=== PATIENT | male | born 1940 | race Caucasian/White ===

== ENCOUNTER 2017-07-04 01:19 | Emergency (ER) | payer MEDICARE, MEDICAID ==
[~2017-07-04] VITALS: Ht 175.3 cm; Wt 75.9 kg
[2017-07-04 01:21] VITALS: BP 176/96
[2017-07-04 02:31] LABS: HEMATOCRIT 42.9 % (39.2-51.8); HEMOGLOBIN 14.5 g/dL (13.7-18.0); WHITE BLOOD COUNT 7.1 x10^3/uL (3.4-10)
[2017-07-04 02:42] LABS: ASPARTATE AMINO TRANSFERASE 28 U/L (15-37); BLOOD UREA NITROGEN 16 mg/dL (7-18)
== END 2017-07-04 03:14 | disposition home or self-care (01) ==
LOC: ED 03:08
DX: R41.0 Disorientation, unspecified (principal); R41.82 Altered mental status, unspecified; H53.2 Diplopia; F17.200 Nicotine dependence, unspecified, uncomplicated
CPT/HCPCS: 36415; 70450; 80053; 85025; 93005; 99285

== ENCOUNTER 2017-09-15 17:20 | Observation (INO) | payer MEDICARE, MEDICAID ==
[~2017-09-15] VITALS: Ht 175.3 cm; Wt 74.4 kg
[2017-09-15] MEDS ORDERED: LISI-167 PO (17:52)
[2017-09-15] MEDS ORDERED: SODIUM CHLORIDE FLUSH 10ML SYR IVF ONE (18:00)
[2017-09-15 18:15] LABS: HEMATOCRIT 46.9 % (39.2-51.8); HEMOGLOBIN 15.7 g/dL (13.7-18.0); WHITE BLOOD COUNT 8.7 x10^3/uL (3.4-10)
[2017-09-15 18:22] LABS: ASPARTATE AMINO TRANSFERASE 22 U/L (15-37); BLOOD UREA NITROGEN 14 mg/dL (7-18)
[2017-09-15 18:27] LABS: IS PT STATUS REG ER OR PRE ER? YES
[2017-09-15] MEDS ORDERED: HEPARIN 25,000 UNITS/500ML PMX 500 ML IV PRN ×2 (19:00→19:30)
[2017-09-15] MEDS ORDERED: HEPARIN 5,000 UNITS/ML, 1ML IV ONE (19:00)
[2017-09-15] MEDS ORDERED: HEPARIN 5,000 UNITS/ML, 1ML IV PRN (19:00)
[2017-09-15] MEDS ORDERED: ENOXAPARIN 80 MG/0.8 ML SQ ONE (19:00)
[2017-09-15] MEDS ORDERED: HEPARIN 5,000 UNITS/ML, 1ML ONE (19:04)
[2017-09-15] MEDS ORDERED: HEPARIN 25,000 UNITS/500ML PMX 500 ML ONE (19:05)
[2017-09-15] MEDS ORDERED: morphine SULFATE 10 MG/ML, 1ML IVPush PRN (19:30)
[2017-09-15] MEDS ORDERED: ENALAPRILAT 1.25 MG/ML, 2ML IVPush PRN (19:30)
[2017-09-15] MEDS ORDERED: LABETALOL 5MG/ML, 20ML IVPush PRN (19:30)
[2017-09-15 20:17] VITALS: BP 179/93
[2017-09-15 21:02] VITALS: BP 156/88
[2017-09-15] MEDS ORDERED: NICOTINE 21 MG/24 HR PATCH.TD24 TD ONE (22:00)
[2017-09-16 01:02] LABS: IS PT STATUS REG ER OR PRE ER? NO
[2017-09-16 01:15] VITALS: BP 126/79
[2017-09-16 02:06] LABS: DAU SCREEN DISCLAIMER
[2017-09-16 06:46] LABS: HEMATOCRIT 44.6 % (39.2-51.8); HEMOGLOBIN 15.1 g/dL (13.7-18.0); WHITE BLOOD COUNT 6.2 x10^3/uL (3.4-10)
[2017-09-16 06:58] LABS: BLOOD UREA NITROGEN 10 mg/dL (7-18)
[2017-09-16] MEDS ORDERED: ASPIRIN 81 MG TABLET EC PO SCH (08:00)
[2017-09-16] MEDS ORDERED: REGADENOSON 0.4 MG/5 ML SYRINGE ONE (08:05)
[2017-09-16 08:30] VITALS: BP 159/84
[2017-09-16 08:48] LABS: IS PT STATUS REG ER OR PRE ER? NO
[2017-09-16] MEDS ORDERED: LISINOPRIL 10 MG TABLET PO SCH (09:00)
[2017-09-16] MEDS ORDERED: ENOXAPARIN 40 MG/0.4 ML SQ SCH (10:00)
[2017-09-16 14:02] VITALS: BP 130/82
[2017-09-16] MEDS ORDERED: METO25TA91 PO (14:25)
[2017-09-16] MEDS ORDERED: ATOR20TA9 PO (14:25)
[2017-09-16] MEDS ORDERED: ASPI-515 PO (14:25)
[2017-09-16] MEDS ORDERED: LISI-167 PO (14:26)
== END 2017-09-16 15:21 | disposition home or self-care (01) ==
LOC: ED 18:02 → INTOOBSV 18:39 → EDIP 18:39 → 5SO 20:01
PROVIDERS: ADMIT Internal Medicine; ATTEND Internal Medicine
DX: I21.4 Non-ST elevation (NSTEMI) myocardial infarction (principal); I16.0 Hypertensive urgency; J44.9 Chronic obstructive pulmonary disease, unspecified; I11.0 Hypertensive heart disease with heart failure; I50.32 Chronic diastolic (congestive) heart failure; E44.1 Mild protein-calorie malnutrition; F15.10 Other stimulant abuse, uncomplicated; F17.200 Nicotine dependence, unspecified, uncomplicated; Z91.19 Patient's noncompliance with other medical treatment and regimen
CPT/HCPCS: 36415; 71010; 78452; 80048; 80053; 80061; 80307; 83036; 83735; 84484; 85025; 85520; 85610; 93017; 93306; 96365; 96366; 96372; 96375; 96376; 99285; A9502; C9898; G0378; J1644; J1650; J2785; G0479

== ENCOUNTER 2017-09-22 04:59 | Emergency (ER) | payer MEDICARE, MEDICAID ==
[~2017-09-22] VITALS: Ht 175.3 cm; Wt 79.0 kg
[~2017-09-22 04:59] MED LIST: ASPI-515 PO; ATOR20TA9 PO; LISI-167 PO; METO25TA91 PO
[2017-09-22 06:20] LABS: HEMATOCRIT 45.5 % (39.2-51.8); HEMOGLOBIN 15.4 g/dL (13.7-18.0); WHITE BLOOD COUNT 9.5 x10^3/uL (3.4-10)
[2017-09-22 06:21] LABS: BLOOD UREA NITROGEN 11 mg/dL (7-18)
[2017-09-22 06:25] LABS: IS PT STATUS REG ER OR PRE ER? YES
[2017-09-22 07:36] VITALS: BP 153/85
== END 2017-09-22 07:38 | disposition home or self-care (01) ==
LOC: ED 05:36
DX: I10 Essential (primary) hypertension (principal); F11.10 Opioid abuse, uncomplicated; I25.2 Old myocardial infarction
CPT/HCPCS: 36415; 71010; 80048; 82040; 83880; 84484; 85025; 93005

== ENCOUNTER 2019-02-15 12:56 | Inpatient (IN) | payer MEDICARE, MEDICAID ==
[~2019-02-15] VITALS: Ht 177.8 cm; Wt 72.9 kg
[~2019-02-15 12:56] MED LIST changes: +ACET325T14 PO; +AMOX1TAB12 PO; +ATOR20TA37 PO; -ATOR20TA9 PO; +RIVA15TA PO; +RIVA20TA PO
[2019-02-15 13:57] LABS: ALBUMIN 3.3 g/dL (3.4-5.0); ANION GAP 4 mmol/L (5-15); CALCIUM 8.6 mg/dL (8.5-10.1); CHLORIDE 113 mmol/L (98-107); CREATININE 0.82 mg/dL (0.7-1.3)
[2019-02-15 14:02] LABS: BASOPHILS # (AUTO) 0.02 x10^3/uL (0-0.1); BASOPHILS % (AUTO) 0 % (0-1); EOSINOPHILS # (AUTO) 0.21 x10^3/uL (0-0.4); EOSINOPHILS % (AUTO) 3 % (1-7); LYMPHOCYTES # (AUTO) 1.75 x10^3/uL (1-3.4); LYMPHOCYTES % (AUTO) 21 % (22-44); MD NO; MEAN CORPUSCULAR HEMOGLOBIN 31.1 pg (27.5-34.5); MEAN CORPUSCULAR HGB CONC 32.6 g/dL (33.2-36.2); MEAN CORPUSCULAR VOLUME 95.4 fL (81-97); MONOCYTES # (AUTO) 0.83 x10^3/uL (0.2-0.8); MONOCYTES % (AUTO) 10 % (2-9); NEUTROPHILS # (AUTO) 5.34 x10^3/uL (1.8-6.8); NEUTROPHILS % (AUTO) 66 % (42-75); PLATELET COUNT 244 x10^3/uL (130-400); RED BLOOD COUNT 4.73 x10^6/uL (4.38-5.82); RED CELL DISTRIBUTION WIDTH 13.3 % (9.4-14.8)
--- NOTE | 2019-02-15 14:25 | NUR ---
FORM SETTER: PT TO ROOM FROM LOBBY
--- NOTE | 2019-02-15 14:25 | NUR ---
PT AMBULATORY TO ROOM FROM LOBBY. NAD.
[2019-02-15] MEDS ORDERED: LIDOCAINE-MPF 1%, 5ML ONE (14:59)
[2019-02-15] MEDS ORDERED: ONDANSETRON 2MG/ML, 2ML ONE (14:59)
[2019-02-15] MEDS ORDERED: ONDANSETRON 2MG/ML, 2ML IVPush ONE (15:00)
[2019-02-15] MEDS ORDERED: VANCOMYCIN PER PHARMACY IV ONE (15:00)
[2019-02-15] MEDS ORDERED: MORPHINE SULFATE 4 MG/ML, 1ML ONE (15:00)
[2019-02-15] MEDS ORDERED: SODIUM CHLORIDE FLUSH 10ML SYR IVF ONE (15:00)
[2019-02-15] MEDS ORDERED: MORPHINE SULFATE 4 MG/ML, 1ML IVPush PRN (15:00)
--- NOTE | 2019-02-15 15:08 | NUR ---
Chirag RN note: Pt medicated for pain per DEC. MD resident at bedside to perform I&D. Pt resting in bed, talking with SO, NADN, denies other needs. Continuous oxygen and BP Monitors applied, all safety measures observed.
--- NOTE | 2019-02-15 15:16 | NUR ---
BEDSIDE REPORT TO JESENIA MERCER. AWAITING SECOND DRAW TO INITIATE VANCO.
[2019-02-15] MEDS ORDERED: VANCOMYCIN 1,500 MG in SODIUM CHLORIDE 0.9% 250 ML IV ONE (15:30)
--- NOTE | 2019-02-15 15:48 | NUR ---
ATTEMTP TO GIVE REPORT TO MEDICAL X 1, RN UNABLE TO TAKE REPORT
[2019-02-15 16:08] LABS: ALANINE AMINOTRANSFERASE 45 U/L (12-78); ALBUMIN 3.5 g/dL (3.4-5.0); ANION GAP 4 mmol/L (5-15); CALCIUM 8.7 mg/dL (8.5-10.1); CHLORIDE 115 mmol/L (98-107); CREATININE 0.78 mg/dL (0.7-1.3)
[2019-02-15 16:10] LABS: ALKALINE PHOSPHATASE 110 U/L (45-117); BILIRUBIN,TOTAL 0.5 mg/dL (0.2-1.0); TOTAL PROTEIN 6.8 g/dL (6.4-8.2)
[2019-02-15] MEDS: SODIUM CHLORIDE 0.9% 1,000 ML IV SCH (16:12)
--- NOTE | 2019-02-15 16:26 | NUR ---
VANCO STARTED AFTER BLOOD CULTURES, LINE DRAWN AROUND REDNESS ON R LEG, REPORT GIVEN, HOSPITALIST SAW PT.
[2019-02-15] MEDS ORDERED: VANCOMYCIN PER PHARMACY MC PRN (16:30)
[2019-02-15] MEDS ORDERED: DOCUSATE 100 MG CAPSULE PO PRN (16:30)
[2019-02-15] MEDS ORDERED: HEPARIN 5,000 UNITS/ML, 1ML SQ SCH (16:30)
[2019-02-15] MEDS ORDERED: morphine SULFATE 10 MG/ML, 1ML IVPush PRN (16:30)
[2019-02-15] MEDS ORDERED: LABETALOL 5 MG/ML SYRINGE IVPush PRN (16:30)
[2019-02-15] MEDS ORDERED: POLYETHYLENE GLYCOL 17 GM PACKET PO PRN (16:30)
[2019-02-15] MEDS ORDERED: BISACODYL 10 MG SUPP PR PRN (16:30)
[2019-02-15] MEDS ORDERED: GABAPENTIN 300 MG CAPSULE PO PRN (16:30)
[2019-02-15 16:36] LABS: INTERNATIONAL NORMALIZED RATIO 0.97 (0.93-1.1); PROTHROMBIN TIME 10.2 Seconds (9.6-11.5)
[2019-02-15 17:00] LABS: HEMOGLOBIN A1C 5.9 % (4.2-6.3)
[2019-02-15] MEDS ORDERED: PHARMACOKINETIC MONITORING MC PRN (17:00)
[2019-02-15] MEDS ORDERED: PHARMACOKINETIC CONSULTATION MC ONE (17:00)
[2019-02-15 17:10] VITALS: BP 170/94
[2019-02-15 17:10] LABS: HCT (SEDRATE) 45.1 % (39.2-51.8)
[2019-02-15] MEDS: NICOTINE 14MG/24 HR PATCH.TD24 TD SCH (18:27)
[2019-02-15] MEDS: PIPERACILLIN/TAZO/PMX 3.375GM 50 ML IV SCH ×2 (18:27→23:16)
[2019-02-15] MEDS: RIVAROXABAN 15 MG TABLET PO SCH (18:34)
[2019-02-15 18:47] VITALS: BP 170/94
[2019-02-15 21:35] VITALS: BP 121/64
[2019-02-15 22:09] LABS: MICROSCOPIC NOT IND
[2019-02-15 22:22] LABS: CULTURE INDICATED? NO
[2019-02-16] MEDS: ACETAMINOPHEN 325 MG TABLET PO PRN (00:58)
[2019-02-16 02:54] VITALS: BP 127/67
[2019-02-16] MEDS: SODIUM CHLORIDE 0.9% 1,000 ML IV SCH ×2 (03:30→13:45)
[2019-02-16] MEDS ORDERED: OMEP5POW PO (04:09)
[2019-02-16] MEDS ORDERED: METO-282 PO (04:10)
[2019-02-16] MEDS ORDERED: TAMS-11 PO (04:10)
[2019-02-16] MEDS ORDERED: ATOR20TA PO (04:11)
[2019-02-16 05:16] LABS: BASOPHILS # (AUTO) 0.03 x10^3/uL (0-0.1); BASOPHILS % (AUTO) 0 % (0-1); EOSINOPHILS # (AUTO) 0.17 x10^3/uL (0-0.4); EOSINOPHILS % (AUTO) 2 % (1-7); LYMPHOCYTES # (AUTO) 1.29 x10^3/uL (1-3.4); LYMPHOCYTES % (AUTO) 14 % (22-44); MD NO; MEAN CORPUSCULAR HEMOGLOBIN 31.2 pg (27.5-34.5); MEAN CORPUSCULAR HGB CONC 32.3 g/dL (33.2-36.2); MEAN CORPUSCULAR VOLUME 96.4 fL (81-97); MEAN PLATELET VOLUME 8.1 fL (7.4-10.4); MONOCYTES # (AUTO) 1.21 x10^3/uL (0.2-0.8); MONOCYTES % (AUTO) 13 % (2-9); NEUTROPHILS # (AUTO) 6.68 x10^3/uL (1.8-6.8); NEUTROPHILS % (AUTO) 71 % (42-75); PLATELET COUNT 208 x10^3/uL (130-400); RED BLOOD COUNT 4.28 x10^6/uL (4.38-5.82); RED CELL DISTRIBUTION WIDTH 13.4 % (9.4-14.8)
[2019-02-16 05:28] LABS: CHLORIDE 114 mmol/L (98-107)
[2019-02-16] MEDS: PIPERACILLIN/TAZO/PMX 3.375GM 50 ML IV SCH ×4 (05:33→22:43)
[2019-02-16 05:46] LABS: ALANINE AMINOTRANSFERASE 36 U/L (12-78); ALBUMIN 2.9 g/dL (3.4-5.0); ALKALINE PHOSPHATASE 91 U/L (45-117); ANION GAP 5 mmol/L (5-15); BILIRUBIN,TOTAL 0.4 mg/dL (0.2-1.0); CALCIUM 8.1 mg/dL (8.5-10.1); CREATININE 1.05 mg/dL (0.7-1.3); TOTAL PROTEIN 5.6 g/dL (6.4-8.2)
[2019-02-16 07:16] VITALS: BP 159/75
[2019-02-16] MEDS: RIVAROXABAN 15 MG TABLET PO SCH ×2 (10:25→16:38)
[2019-02-16 14:23] VITALS: BP 129/76
[2019-02-16] MEDS: VANCOMYCIN 1,400 MG in SODIUM CHLORIDE 0.9% 250 ML IV SCH (14:47)
[2019-02-16] MEDS: NICOTINE 14MG/24 HR PATCH.TD24 TD SCH (14:50)
[2019-02-16 19:56] VITALS: BP 171/102
[2019-02-16] MEDS: hydrALAzine 20 MG/ML, 1ML IVPush PRN (22:43)
[2019-02-17] VITALS: BP 168/89
[2019-02-17 01:33] VITALS: BP 153/84
[2019-02-17] MEDS: SODIUM CHLORIDE 0.9% 1,000 ML IV SCH ×3 (02:52→23:58)
[2019-02-17] MEDS: PIPERACILLIN/TAZO/PMX 3.375GM 50 ML IV SCH (05:19)
[2019-02-17 05:41] LABS: CHLORIDE 112 mmol/L (98-107)
[2019-02-17 05:52] LABS: ALANINE AMINOTRANSFERASE 47 U/L (12-78); ALBUMIN 2.8 g/dL (3.4-5.0); ALKALINE PHOSPHATASE 101 U/L (45-117); ANION GAP 7 mmol/L (5-15); BASOPHILS # (AUTO) 0.02 x10^3/uL (0-0.1); BASOPHILS % (AUTO) 0 % (0-1); BILIRUBIN,TOTAL 0.7 mg/dL (0.2-1.0); CREATININE 0.76 mg/dL (0.7-1.3); EOSINOPHILS # (AUTO) 0.19 x10^3/uL (0-0.4); EOSINOPHILS % (AUTO) 3 % (1-7); LYMPHOCYTES # (AUTO) 1.23 x10^3/uL (1-3.4); LYMPHOCYTES % (AUTO) 19 % (22-44); MD NO; MEAN CORPUSCULAR HGB CONC 33.5 g/dL (33.2-36.2); MEAN CORPUSCULAR VOLUME 95.6 fL (81-97); MEAN PLATELET VOLUME 8.2 fL (7.4-10.4); MONOCYTES # (AUTO) 1.29 x10^3/uL (0.2-0.8); MONOCYTES % (AUTO) 20 % (2-9); NEUTROPHILS # (AUTO) 3.88 x10^3/uL (1.8-6.8); NEUTROPHILS % (AUTO) 59 % (42-75); PLATELET COUNT 200 x10^3/uL (130-400); RED BLOOD COUNT 4.33 x10^6/uL (4.38-5.82); RED CELL DISTRIBUTION WIDTH 13.3 % (9.4-14.8)
[2019-02-17 08:02] VITALS: BP 167/93
[2019-02-17] MEDS: AMPICILLIN/SULBACTAM 3 GM in SODIUM CHLORIDE 0.9% 100 ML IV SCH ×3 (09:03→21:54)
[2019-02-17] MEDS: RIVAROXABAN 15 MG TABLET PO SCH ×2 (09:03→17:15)
[2019-02-17 13:57] VITALS: BP 155/88
[2019-02-17] MEDS: VANCOMYCIN 1,400 MG in SODIUM CHLORIDE 0.9% 250 ML IV SCH (15:53)
[2019-02-17] MEDS: NICOTINE 14MG/24 HR PATCH.TD24 TD SCH (17:15)
[2019-02-17 19:42] VITALS: BP 142/91
[2019-02-18 02:19] VITALS: BP 186/94
[2019-02-18] MEDS: hydrALAzine 20 MG/ML, 1ML IVPush PRN (02:37)
[2019-02-18 03:26] VITALS: BP 159/97
[2019-02-18] MEDS: AMPICILLIN/SULBACTAM 3 GM in SODIUM CHLORIDE 0.9% 100 ML IV SCH ×4 (03:29→21:42)
[2019-02-18 04:52] LABS: BASOPHILS # (AUTO) 0.01 x10^3/uL (0-0.1); BASOPHILS % (AUTO) 0 % (0-1); EOSINOPHILS % (AUTO) 2 % (1-7); LYMPHOCYTES # (AUTO) 1.28 x10^3/uL (1-3.4); LYMPHOCYTES % (AUTO) 19 % (22-44); MD NO; MEAN CORPUSCULAR HEMOGLOBIN 31.8 pg (27.5-34.5); MEAN CORPUSCULAR VOLUME 96.5 fL (81-97); MEAN PLATELET VOLUME 8.1 fL (7.4-10.4); MONOCYTES # (AUTO) 1.05 x10^3/uL (0.2-0.8); MONOCYTES % (AUTO) 16 % (2-9); NEUTROPHILS # (AUTO) 4.35 x10^3/uL (1.8-6.8); NEUTROPHILS % (AUTO) 64 % (42-75); PLATELET COUNT 212 x10^3/uL (130-400); RED CELL DISTRIBUTION WIDTH 13.4 % (9.4-14.8)
[2019-02-18 05:03] LABS: ALBUMIN 3.4 g/dL (3.4-5.0); ANION GAP 8 mmol/L (5-15); CALCIUM 8.7 mg/dL (8.5-10.1); CHLORIDE 112 mmol/L (98-107); CREATININE 0.79 mg/dL (0.7-1.3)
[2019-02-18 07:23] VITALS: BP 152/90
[2019-02-18] MEDS: RIVAROXABAN 15 MG TABLET PO SCH ×2 (07:41→18:23)
[2019-02-18] MEDS: SODIUM CHLORIDE 0.9% 1,000 ML IV SCH (07:44)
[2019-02-18 12:45] VITALS: BP 181/97
[2019-02-18] MEDS: VANCOMYCIN 1,400 MG in SODIUM CHLORIDE 0.9% 250 ML IV SCH (16:35)
[2019-02-18] MEDS: NICOTINE 14MG/24 HR PATCH.TD24 TD SCH (18:24)
[2019-02-18 19:26] VITALS: BP 157/86
[2019-02-19 01:42] VITALS: BP 151/82
[2019-02-19] MEDS: AMPICILLIN/SULBACTAM 3 GM in SODIUM CHLORIDE 0.9% 100 ML IV SCH ×4 (03:17→21:00)
[2019-02-19 04:52] LABS: BASOPHILS # (AUTO) 0.02 x10^3/uL (0-0.1); BASOPHILS % (AUTO) 0 % (0-1); EOSINOPHILS # (AUTO) 0.28 x10^3/uL (0-0.4); EOSINOPHILS % (AUTO) 5 % (1-7); LYMPHOCYTES # (AUTO) 1.57 x10^3/uL (1-3.4); LYMPHOCYTES % (AUTO) 27 % (22-44); MD NO; MEAN CORPUSCULAR HEMOGLOBIN 31.9 pg (27.5-34.5); MEAN CORPUSCULAR HGB CONC 33.2 g/dL (33.2-36.2); MEAN CORPUSCULAR VOLUME 96.1 fL (81-97); MONOCYTES # (AUTO) 0.91 x10^3/uL (0.2-0.8); MONOCYTES % (AUTO) 16 % (2-9); NEUTROPHILS # (AUTO) 3.07 x10^3/uL (1.8-6.8); NEUTROPHILS % (AUTO) 53 % (42-75); PLATELET COUNT 200 x10^3/uL (130-400); RED BLOOD COUNT 4.17 x10^6/uL (4.38-5.82); RED CELL DISTRIBUTION WIDTH 13.4 % (9.4-14.8)
[2019-02-19 05:03] LABS: ALBUMIN 2.8 g/dL (3.4-5.0); ANION GAP 7 mmol/L (5-15); CALCIUM 8.3 mg/dL (8.5-10.1); CHLORIDE 113 mmol/L (98-107); CREATININE 0.84 mg/dL (0.7-1.3)
[2019-02-19 07:39] VITALS: BP 134/74
[2019-02-19] MEDS: RIVAROXABAN 15 MG TABLET PO SCH ×2 (08:47→17:00)
[2019-02-19] MEDS: VANCOMYCIN 1,400 MG in SODIUM CHLORIDE 0.9% 250 ML IV SCH (08:47)
[2019-02-19 13:53] VITALS: BP 163/96
[2019-02-19] MEDS: SODIUM CHLORIDE 0.9% 1,000 ML IV SCH (15:15)
[2019-02-19] MEDS: NICOTINE 14MG/24 HR PATCH.TD24 TD SCH (17:00)
[2019-02-19 19:49] VITALS: BP 155/97
[2019-02-20 01:34] VITALS: BP 147/88
[2019-02-20] MEDS: VANCOMYCIN 1,400 MG in SODIUM CHLORIDE 0.9% 250 ML IV SCH (02:15)
[2019-02-20] MEDS: SODIUM CHLORIDE 0.9% 1,000 ML IV SCH (02:19)
[2019-02-20] MEDS: AMPICILLIN/SULBACTAM 3 GM in SODIUM CHLORIDE 0.9% 100 ML IV SCH ×2 (04:23→10:11)
[2019-02-20 06:40] VITALS: BP 168/89
[2019-02-20] MEDS: ACETAMINOPHEN 325 MG TABLET PO PRN (06:44)
[2019-02-20] MEDS ORDERED: CEPH-368 PO (07:23)
[2019-02-20] MEDS ORDERED: RIVA15TA PO (07:23)
[2019-02-20] MEDS: RIVAROXABAN 15 MG TABLET PO SCH (08:50)
[2019-02-20 13:27] VITALS: BP 162/108
== END 2019-02-20 14:21 | disposition home or self-care (01) | DRG 603 ==
LOC: ED 14:41 → EDIP 14:56 → 3NE 16:44 → DCLOUNGE 02-20 14:16
PROVIDERS: ADMIT Internal Medicine; ATTEND Internal Medicine
PROC: 0Y990ZZ Drainage of Right Lower Extremity, Open Approach (ICD-10-PCS; principal; 2019-02-15)
DX: L03.115 Cellulitis of right lower limb (principal); L02.415 Cutaneous abscess of right lower limb; F17.210 Nicotine dependence, cigarettes, uncomplicated; I10 Essential (primary) hypertension; J44.9 Chronic obstructive pulmonary disease, unspecified; Z79.01 Long term (current) use of anticoagulants; Z86.718 Personal history of other venous thrombosis and embolism; Z71.6 Tobacco abuse counseling
CPT/HCPCS: 10060; 36415; 71045; 80048; 80053; 80202; 81003; 82040; 83036; 83605; 83735; 84100; 85025; 85610; 85651; 86140; 87040; 87070; 87075; 87077; 87186; 87205; 96365; 96375; G0378; J0295; J2405; J2543; J3370; J0360; J2270; J7030; J7050

== ENCOUNTER 2019-02-22 10:31 | Outpatient (CLI) | payer MEDICARE, MEDICAID ==
[~2019-02-22 10:31] MED LIST changes: +ATOR20TA PO; +CEPH-368 PO; +METO-282 PO; +OMEP5POW PO; +TAMS-11 PO
== END 2019-02-22 23:59 | disposition home or self-care (01) ==
LOC: WOUND 10:31
PROVIDERS: ATTEND Family Medicine
DX: T81.31XA Disruption of external operation (surgical) wound, not elsewhere classified, initial encounter (principal); I10 Essential (primary) hypertension; J44.9 Chronic obstructive pulmonary disease, unspecified; F17.210 Nicotine dependence, cigarettes, uncomplicated; Z86.718 Personal history of other venous thrombosis and embolism; Y83.9 Surgical procedure, unspecified as the cause of abnormal reaction of the patient, or of later complication, without mention of misadventure at the time of the procedure; Y92.9 Unspecified place or not applicable
CPT/HCPCS: 97597; G0463

== ENCOUNTER → 2019-03-01 | Outpatient (CLI) | payer MEDICARE, MEDICAID | END | disposition home or self-care (01) | LOC: WOUND 08:50 | PROVIDERS: ATTEND Family Medicine | DX: T81.31XD Disruption of external operation (surgical) wound, not elsewhere classified, subsequent encounter (principal); L03.115 Cellulitis of right lower limb; I11.0 Hypertensive heart disease with heart failure; I50.32 Chronic diastolic (congestive) heart failure; E78.5 Hyperlipidemia, unspecified; J44.9 Chronic obstructive pulmonary disease, unspecified; F17.210 Nicotine dependence, cigarettes, uncomplicated; Z79.01 Long term (current) use of anticoagulants; Z86.718 Personal history of other venous thrombosis and embolism; Y83.8 Other surgical procedures as the cause of abnormal reaction of the patient, or of later complication, without mention of misadventure at the time of the procedure | CPT/HCPCS: G0463 ==

== ENCOUNTER → 2019-03-08 | Outpatient (CLI) | payer MEDICARE, MEDICAID | END | disposition home or self-care (01) | LOC: WOUND 14:28 | PROVIDERS: ATTEND Family Medicine | DX: T81.31XD Disruption of external operation (surgical) wound, not elsewhere classified, subsequent encounter (principal); L03.115 Cellulitis of right lower limb; I11.0 Hypertensive heart disease with heart failure; I50.32 Chronic diastolic (congestive) heart failure; E78.5 Hyperlipidemia, unspecified; J44.9 Chronic obstructive pulmonary disease, unspecified; F17.210 Nicotine dependence, cigarettes, uncomplicated; Z79.01 Long term (current) use of anticoagulants; Z86.718 Personal history of other venous thrombosis and embolism; Y83.8 Other surgical procedures as the cause of abnormal reaction of the patient, or of later complication, without mention of misadventure at the time of the procedure | CPT/HCPCS: G0463 ==

== ENCOUNTER 2021-05-02 09:31 | Emergency (ER) | payer MEDICARE, MEDICAID ==
[~2021-05-02] VITALS: Ht 175.3 cm; Wt 75.0 kg
[~2021-05-02 09:31] MED LIST changes: -ASPI-515 PO; +ASPI-963 PO; +AZIT250T PO; +CEFD300C37 PO; +LEVO25TA4 PO; +LISI40TA9 PO
[2021-05-02 09:35] VITALS: BP 154/104
== END 2021-05-02 10:56 | disposition home or self-care (01) ==
LOC: ED 10:15
DX: J15.9 Unspecified bacterial pneumonia (principal)
CPT/HCPCS: 99283